=== PATIENT | female | born 1990 | race Caucasian/White ===

== ENCOUNTER 2023-07-16 08:06 | Emergency (ER) | payer MEDICAID ==
[~2023-07-16] VITALS: Ht 152.4 cm; Wt 63.5 kg
[2023-07-16 08:14] VITALS: BP 95/58; PULSE 74; RESP 18; TEMP 98.5; O2SAT 96
[2023-07-16] MEDS ORDERED: LORA1T1237 PO (08:34)
[2023-07-16] MEDS ORDERED: PROM118S5 PO (08:34)
[2023-07-16 09:21] LABS: FLU A ANTIGEN negative (NEGATIVE); FLU B ANTIGEN negative (NEGATIVE)
== END 2023-07-16 08:45 | disposition home or self-care (01) ==
LOC: MED 08:06
DX: B34.9 Viral infection, unspecified (principal); Z20.822 Contact with and (suspected) exposure to COVID-19; G43.909 Migraine, unspecified, not intractable, without status migrainosus; Z88.1 Allergy status to other antibiotic agents
CPT/HCPCS: 99283

== ENCOUNTER 2023-07-17 21:58 | Emergency (ER) | payer MEDICAID ==
[~2023-07-17] VITALS: Ht 149.9 cm; Wt 63.5 kg
[~2023-07-17 21:58] MED LIST: LORA1T1237 PO; PROM118S5 PO
== END 2023-07-17 23:35 | disposition left against medical advice (07) ==
LOC: MED 21:58
DX: R10.11 Right upper quadrant pain (principal); Z53.21 Procedure and treatment not carried out due to patient leaving prior to being seen by health care provider
CPT/HCPCS: 99281